=== PATIENT | male | born 1935 | race Caucasian/White ===

== ENCOUNTER 2016-07-10 07:15 | Day surgery (SDC) | payer MEDICARE ==
[2016-07-10] VITALS (9 sets, daily range): BP systolic 100–137; BP diastolic 46–66; PULSE 55–65; RESP 13–17; O2SAT 97–100
[~2016-07-10] VITALS: Ht 165.1 cm; Wt 75.3 kg
[~2016-07-10 07:15] MED LIST: ASPI-973 PO; Acetaminophen IV 1,000 mg IV SCH; Bupivacaine Liposome 1.3% 20 mL Inj INFILTRATE SCH; CeFAZolin Inj 2 GM in IV Premix 1 EACH IV SCH; DEXT20TA6 PO; LIP40 PO; Lactated Ringer's 1,000 ML IV ONE; MESA800T PO; NADO40TA PO; TAMS0.4C98 PO; TERA10CA5 PO
[2016-07-10] MEDS ORDERED: Dexamethasone 4 mg/mL Inj ONE (07:16)
[2016-07-10] MEDS ORDERED: fentaNYL-PF 50 mCg/mL 2 mL Inj ONE (07:16)
[2016-07-10] MEDS ORDERED: Ondansetron 2 mg/mL 2 mL Inj ONE (07:16)
--- NOTE | 2016-07-10 07:22 | PCM.HPANE ---
Patient Data Surgeon Admitting Provider: Attending Provider:Sushant Maldonado MD Primary Care Physician:Lynne Foster MD Other Provider:Rika Brasheringham Anesthesia Reason for Visit Phimosis, Balanitis Ht/WT & BMI Height (Feet): 5 Height (Inches): 5 Weight (Kilograms): 75.29 Body Mass Index 27.00 Allergies Coded Allergies: niacin (Verified Allergy, Intermediate, FLUSHING, 12/12/13) simvastatin (Verified Allergy, Intermediate, 12/12/13) Past Anesthesia History Anesthesia History: Denies:: Abnormal Airway, Anesthesia Reactions, Difficult Intubation, Fam Anesthesia Reaction, Fam Malignant Hypertherm, Malignant Hyperthermia Diabetes History Hx Diabetes?: No MRSA MRSA: No Medications Blood Thinner: Aspirin Hypertension Medication: Yes Home Meds Incl Beta Jose L: Yes Reported Medications Terazosin 10 Mg Agicraa41 Mg PO HS Ref 0 07/06/[address] (Asacol HD)800 Mg Syhcvo111 Mg PO TID 07/06/16 Nadolol 40 Mg Tnsvlk69 Mg PO DAILY 30 Days Ref 0 07/06/16 Aspirin 81 Mg Eehqql73 Mg PO DAILY Ref 0 07/06/16 Dextroamphetamine Sulfate (Zenzedi)20 Mg Nbrdgm12 Mg PO DAILY 07/06/16 Atorvastatin (Lipitor)40 Mg Lxrkjp91 Mg PO DAILY Ref 0 07/06/16 Tamsulosin (Flomax)0.4 Mg Capsule0.8 Mg PO DAILY Ref 0 07/06/16 Discontinued Reported Medications Buspirone 5 Mg Tablet5 Mg PO DAILY 30 Days Ref 0 12/12/13 Pramipexole Dihydrochloride (Mirapex)1.5 Mg Tablet1.5 Mg PO 12/12/13 Dextroamphetamine ER 15 Mg Capsule.er15 Mg PO BID #30 CAPSULE Ref 0 12/12/[address] (Asacol HD)800 Mg Tablet.dr800 Mg PO TID 12/12/13 Tamsulosin ER 0.4 Mg Cap.er.24h0.4 Mg PO DAILY 30 Days Ref 0 12/12/13 Pravastatin (Pravachol)40 Mg Tab40 Mg PO HS 30 Days Ref 0 12/12/13 Nadolol 40 Mg Ynwbdr41 Mg PO DAILY 30 Days Ref 0 12/12/13 Aspirin 81 Mg Tablet.dr81 Mg PO DAILY #1 BOTTLE Ref 0 10/3/14 History History of ENT Problems?: No HEENT History: Denies:: Abnormal Airway Cataracts Difficult Intubation Dysphagia Glaucoma Hearing Problem Sinus Problem TMJ Denture Type: None Teeth Condition: Within Normal Limits Missing Teeth Hx of Heart Problems?: Yes Cardiovascular History: Positive for:: Heart Murmur Hypertension Denies:: AICD Irregular Heartbeat Pacemaker Peripheral Vascular Rheumatic Fever Thrombophlebitis Other Cardiac History: "stable angina" Hx of Respiratory Problem?: Yes Respiratory History: Positive for:: Use of C-PAP Machine (idiopathic hypersomnia) Denies:: Asthma COPD Emphysema Pneumonia Tuberculosis Hx Neurologic Problems?: No Neurological History: Denies:: CVA Headaches Multiple Sclerosis Parkinson's Disease Seizures Hx of GI Problems?: Yes Other GI Pertinent History: hx of ulcerative colitis Hx of Problems?: Yes Genitourinary History: Denies:: Kidney Stones Urinary Tract Infection Other Pertinent History: phimosis current admission problem Male Hx: Positive for:: Prostate Problems (BPH) Denies:: Scrotal Mass Testicular Surgery Skin History: Denies:: History Skin Disorders? Pressure Ulcers Hx Musculoskeletal Problems?: No Musculoskeletal History: Denies:: Fibromyalgia Joint Replacement Musculoskeletal Trauma Myasthenia Gravis Osteoarthritis Hx of Psycho/Social Problems?: No Psycho Social History: Denies:: Anxiety Hx Depression Hx Surgeries?: Yes (L ING HERNIA, ) Hx Any Other Health Problems?: Yes Other History: Positive for:: Cancer (BCC ) Denies:: Thyroid Disease History Blood Transfusions: Positive for:: Accept Blood Products? Blood Transfusions (for post polypectomy bleed) Denies:: Blood Transfuse Reaction Hx Diabetes: No Hx Alcohol Use: NoHx Substance Use: Yes (marijuana occasionally) Smoking Status: Former Smoker Have You Smoked inLast 12 mo: No Stop/Bang S-Snoring: Do You Snore Loudly: No T-Tired: feel tired, fatigued: Yes O-Obsered: Observed not breath: No P-Blood Pressure: treated: Yes B- Body Mass Index > 35 kg/m2: No A- Age over 50: Yes N- Neck Large Circumference: No G- Gender Male: Yes CYDNEY Total Score: 4 CYDNEY Risk Assessment: High Risk, =/>3 Yes CYDNEY Category 4 OutPt Procedure: Yes Risk Assessment Category Category 1A: Patient has history of documented sleep apnea, and HAS NOT received any narcotic, sedative or anesthesia administration during this stay. Category 1B: Patient has history of documented sleep apnea, and HAS received any narcotic , sedative or anesthesia administration during this stay Category 2: Patient has SUSPECTED Obstructive Sleep Apnea, and HAS received any narcotic , sedative or anesthesia administration during this stay. Category 3: Patient has SUSPECTED Obstructive Sleep Apnea and HAS NOT received narcotic, sedative or anesthesia administration during this stay. Category 4: Outpatient in Procedural Areas with known sleep apnea or who screen positive for High Risk via the STOP/BANG questionnaire. Exam Exam General Appearance: Alert, Oriented X3, Cooperative, No Acute Distress HEENT/AIRWAY: MP 2 Lungs: Clear to Auscultation, Normal Air Movement Heart: Exam Unremarkable, Regular Rate/Rhythm, No Murmurs/Rubs/Gallops Plan Impression Patient chart reviewed, patient interviewed and anesthestic plan with risks, benefits, and alternatives discussed, and informed consent obtained. ASA Physical Status: ASA2 Mod Systemic Disease Anesthetic Plan: GA Bene/Risks/Altern/Consents: Yes HP Complete Prior to Induction: Yes Malachi Terrell MD July 10, 2016 07:22
[2016-07-10] MEDS ORDERED: Lactated Ringer's 1,000 ML IV ONE (07:55)
[2016-07-10] MEDS ORDERED: Ondansetron 2 mg/mL 2 mL Inj IVPUSH PRN (09:40)
[2016-07-10] MEDS ORDERED: MetoCLOpramide 5 mg/mL 2 mL Inj IVPUSH PRN (09:40)
[2016-07-10] MEDS ORDERED: Lactated Ringer's 1,000 ML IV SCH (09:40)
[2016-07-10] MEDS ORDERED: Dexamethasone 4 mg/mL Inj IVPUSH PRN (09:40)
[2016-07-10] MEDS ORDERED: Phenylephrine 10,000 mCg/mL Inj IVPUSH PRN (09:40)
[2016-07-10] MEDS ORDERED: EPHEDrine Sulfate 50 mg/mL Inj IVPUSH PRN (09:40)
[2016-07-10] MEDS ORDERED: HYDROmorphone 1 mg/mL Inj IVPUSH PRN (09:40)
[2016-07-10] MEDS ORDERED: Lactated Ringer's 500 ML IV PRN (09:40)
[2016-07-10] MEDS ORDERED: fentaNYL-PF 50 mCg/mL 2 mL Inj IVPUSH PRN (09:40)
--- NOTE | 2016-07-10 10:52 | PCM.ANEP1 ---
Post Anesthesia Phase 1 PACU Phase 1 Assessment Vital Signs Vital Signs Date Time Temp Pulse Resp B/P Pulse Ox O2 Delivery O2 Flow Rate FiO2 07/10/16 10:37 36.6 55 15 116/66 98 Room Air 07/10/16 10:30 63 13 117/60 97 Room Air 07/10/16 10:15 36.6 60 14 128/60 99 Nasal Cannula 4 07/10/16 10:10 62 14 112/56 100 Simple Mask 8 07/10/16 10:05 62 14 107/53 99 Simple Mask 8 07/10/16 10:00 62 14 106/48 99 Simple Mask 8 07/10/16 09:57 36.7 64 14 100/46 99 Simple Mask 8 07/10/16 07:56 36.5 65 17 137/62 97 Room Air Anesthetic Administered: GA Level of Alertness: Awake, talking ALVAREZ's with Equal Strength: Yes Pain: No Nausea or Vomiting: No Airway Device: Oralpharangeal Airway Oxygen Delivery: Nasal Cannula, Simple Mask Dermatome Level: Full Sensation Complications: No Follow up Care: No Patient Instructions Provided: Yes Malachi Terrell MD July 10, 2016 10:51
--- NOTE | 2016-07-10 19:46 | OP ---
[address] [address] OPERATIVE REPORT PATIENT: SIMONA COVINGTON : 1935 MR#: [id number] ADMIT: 07/10/2016 JOB ID: [id number] DATE OF SURGERY: 07/10/2016 SURGEON: Sushant Maldonado MD PREOPERATIVE DIAGNOSIS(ES): 1. Phimosis. 2. Zoon's balanitis. POSTOPERATIVE DIAGNOSIS(ES): 1. Phimosis. 2. Zoon's balanitis. OPERATION PERFORMED: Adult circumcision. ANESTHESIOLOGIST: Malachi Terrell MD ANESTHESIA: 1. General. 2. 1.33% Exparel. PROCEDURE SUMMARY: Patient was positioned supine and administered general inhalational anesthesia. The abdomen, genitalia, and groin were prepped and draped in sterile fashion. A dorsal penile and circumferential cutaneous block at the base of the penis was performed with local anesthetic. Next circumcising incisions were made through the internal and external preputial skin at appropriate locations and the intervening tissue was divided with blunt and cautery dissection. Hemostasis was obtained with electrocautery. Next the inner and external preputial skin edges were reapproximated at 4 quadrants with interrupted 4-0 chromic. Next a running vertical mattress 4-0 chromic was used to reapproximate the internal and external preputial skin edges circumferentially. The skin was cleaned and dried and an inner layer of antibiotic-coated Xeroform gauze was applied to the incision line. Over this 2-inch Presley wrap was applied in a nonconstricting manner and finally a nonconstricting wrap of 1-inch Coban was applied for compression. Now the dressing was affixed for stability using 1-inch clear tape in a nonconstricting manner. The patient was then awakened, transferred to [facility], and transferred to the recovery room awake and in stable condition. He tolerated the procedure well.
== END 2016-07-10 23:59 | disposition home or self-care (01) ==
LOC: SAS 07:15
PROVIDERS: ATTEND Specialist
DX: N47.1 Phimosis (principal); N48.1 Balanitis; N40.1 Benign prostatic hyperplasia with lower urinary tract symptoms; I10 Essential (primary) hypertension; R01.1 Cardiac murmur, unspecified; I20.8 Other forms of angina pectoris; G47.12 Idiopathic hypersomnia without long sleep time; F12.90 Cannabis use, unspecified, uncomplicated; Z87.891 Personal history of nicotine dependence; Z79.82 Long term (current) use of aspirin
CPT/HCPCS: 54161; J0690; J1100; J2250; J2405; J3010; J7120